=== PATIENT | female | born 1965 | race Two or more races ===

== ENCOUNTER 2024-07-02 11:45 | Day surgery (SDC) | payer OTHER, MEDICAID, SELFPAY ==
--- NOTE | 2024-07-01 11:58 | EKG_ITS ---
[facility] Test Date: 2024-07-01 Pat Name: SUZY FITZPATRICK Department: Room: - Gender: Female Rod Puller: RAYMOND : 1965 Requested By: Eduardo Medeiros Order Number: [id number] Reading MD: Eduardo Medeiros Measurements Intervals [place] Rate: 78 P: 46 MO: 134 QRS: 24 QRSD: 82 T: 30 QT: 373 QTc: 426 Interpretive Statements SINUS RHYTHM Compared to ECG 01/28/2020 12:03:18 T-wave abnormality no longer present /store/S0/[id number]
[2024-07-01 12:04] VITALS: BMI 36.9
[2024-07-01 13:38] LABS: Basophils # (Auto) 0.1 Thou/mm3 (0.0-0.2); Basophils % (Auto) 1 % (0-2.5); Eosinophils # (Auto) 0.4 Thou/mm3 (0.0-0.5); Eosinophils % (Auto) 4 % (0-10); Hematocrit 40.5 % (36.0-46.0); Hemoglobin 13.7 g/dL (12.0-16.0); Immature Granulocytes % (Auto) 0 % (0-0); Immature Granulocytes Auto 0.01 Thou/mm3 (0.00-0.00); Lymphocytes # (Auto) 2.7 Thou/mm3 (1.0-4.8); Lymphocytes % (Auto) 30 % (10-50); Mean Corpuscular HGB Conc 33.8 g/dl (31.0-37.0); Mean Corpuscular Hemoglobin 30.9 pg (25.0-35.0); Mean Corpuscular Volume 91 fL (80-100); Monocytes # (Auto) 0.8 Thou/mm3 (0.0-0.8); Monocytes % (Auto) 9 % (0-12); Neutrophils # (Auto) 5.3 Thou/mm3 (1.8-7.7); Neutrophils % (Auto) 57 % (37-80); Nucleated Red Blood Cell % 0 /100 WBC (0); Platelet Count 231 Thou/mm3 (140-440); RDW Standard Deviation 41.1 fL (36.4-46.3); Red Blood Count 4.43 Miln/mm3 (4.00-5.20); White Blood Count 9.2 Thou/mm3 (3.6-11.0)
[2024-07-01 13:43] LABS: Partial Thromboplastin Time 27.6 Seconds (22.0-36.0); Prothrombin Time 10.9 Seconds (9.0-12.2)
[2024-07-01 13:52] LABS: Alanine Aminotransferase 24 U/L (10-49); Albumin, Serum 4.4 gm/dL (3.5-5.0); Albumin/Globulin Ratio 1.3 (1.2-2.2); Alkaline Phosphatase 98 U/L (46-116); Anion Gap 6 (7-16); Aspartate Amino Transferase 20 U/L (0-34); BUN/Creatinine Ratio 18 Ratio (12-20); Bilirubin,Total 0.5 mg/dL (0.3-1.2); Blood Urea Nitrogen 14 mg/dL (9-23); Calcium 10.3 mg/dL (8.3-10.6); Calcium (Corrected) 10.3 mg/dL (8.5-10.1); Carbon Dioxide 25.9 mMol/L (20.0-31.0); Chloride 106 mMol/L (98-107); Creatinine (Component) 0.8 mg/dL (0.6-1.3); Estimated Creatinine Clearance 82.7 mL/min (>60); Globulin 3.5 gm/dL (2.3-3.5); Glucose 87 mg/dL (74-106); Osmolality,Calculated 275 (275-295); Potassium 4.8 mMol/L (3.4-5.1); Sodium 138 mMol/L (136-145); Total Protein 7.9 gm/dL (5.7-8.2); eGFR > 60 See Note
--- NOTE | 2024-07-01 15:58 | ESHP_ITS ---
RE: SUZY FITZPATRICK : 1965 DATE OF ADMISSION: 07/02/2024 HISTORY OF PRESENT ILLNESS: The patient came to my office for detailed preop history and physical examination, expressed to present complaint. As per the patient, she has got pain in the right knee joint. The patient stated that pain started about few months back, but the last two months are extremely bad. There is a history of swelling, clicking and locking of the right knee joint. The patient graded intensity of pain to be 8/10. Her quality of life and activities of daily living is affected. There is no history of giving way. The patient wants something to be done about it. The patient underwent right knee arthroscopy in 2016 by me. PAST MEDICAL HISTORY: The patient has a history of high blood pressure. PAST SURGICAL HISTORY: Right knee arthroscopy in 2016. DRUG HISTORY: The patient is on, 1. Ibuprofen 2. Lisinopril 3. Ipratropium 4. Fluticasone The patient stopped ibuprofen recently. ALLERGIES: ALLERGIES TO CODEINE. FAMILY HISTORY AND SOCIAL HISTORY: The patient denies smoking but admits social drinking socially. 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 PHYSICAL EXAMINATION: GENERAL: Normal built lady. VITAL SIGNS: Pulse 87/min, blood pressure 146/81. NECK: Soft, supple. No mass felt. Trachea is centrally placed. CARDIOVASCULAR SYSTEM: First and second heart sounds are normal. No murmur heard. RESPIRATORY SYSTEM: Bilateral vascular breath sounds. CHEST: Clear. ABDOMEN: Soft. No mass felt. Bowel sounds present. BREASTS: Breast exam is not indicated in this case. The patient is advised to see the family physician for regular examination. EXTREMITIES: Right knee examination revealed mild swelling. There is 2+ tenderness. There is a previous scar remarkable for surgery. Active range of motion 0 to 120 degrees of flexion. Tamanna's test is positive. test were negative. Neurovascularly is intact. The patient walks with a limp. DIAGNOSTIC DATA: MRI scan of the right knee was obtained on 06/02/2024. It revealed torn meniscus. Both medial and lateral meniscus are torn. There is also a sprain of the anterior cruciate ligament. Since the patient is symptomatic, therefore, right knee arthroscopy was discussed and advised. Risks with anesthesia was explained and that includes, but not limited to reaction to anesthetic agents, cardiac arrest, and rarely it might be fatal. Risk with operation includes infection and if that happens, the patient may need further surgical procedure. Other risks include delayed healing, wound dehiscence, etc. Indeed, if one finds grade 3 and/or grade 4 chondromalacia, there is a high chance that the patient may not improve much with the pain. In that case, the patient may be a candidate for knee replacement and the patient is fully aware of that. Surgery is booked for 07/02/2024. Appropriate lab work is done. DT: 12:26:36 TT: 15:43:00 Ref: [id number] - TID: [id number]
[2024-07-02] VITALS (9 sets, daily range): BP systolic 108–130; BP diastolic 68–82; PULSE 82–99; RESP 12–20; TEMP 36.3–36.5; O2SAT 95–98; BMI 36.7
--- NOTE | 2024-07-02 15:39 | PD.SUROPNT ---
Date of Procedure 07/02/24 Pre Op Diagnosis Torn medial meniscus right knee joint 2. Torn lateral meniscus 3 degenerative joint disease changes. 4. Synovitis Post Op Diagnosis Same Procedure 1. Partial medial meniscectomy 2 partial lateral meniscectomy 3. Chondroplasty 4. Partial synovectomy including excision plica Findings Patient has significant synovitic tissue inflammation in the suprapatellar pouch area. There is a significant degenerative joint disease changes at patellofemoral compartment. Soft tissue impingement was present. Rest of the findings are in my op report Procedure Description The patient was given general endotracheal anesthesia. Once satisfactory anesthesia was achieved, tourniquet was placed on right upper thigh. Following that the part was thoroughly prepped and draped. After using Esmarch the tourniquet pressure was raised to 350 mmHg. A skin incision was made proximal to lateral tibial plateau and arthroscope was introduced in the usual fashion. Another a skin incision was made in suprapatellar pouch area and outlet was established. The findings were noted as below. In suprapatellar pouch area significant synovial tissue inflammation was present. Medial plica was present as well. The undersurface of patella showed grade 4 chondromalacia. The anterior femoral condyle showed grade 3/4 yes chondromalacia. Soft tissue impingement was present. Medial shelf was present. The patellar tracking was checked and found to be good. The medial compartment showed grade 3/4 chondromalacia for medial tibial plateau and medial femoral condyle. The medial meniscus showed degeneration and tear of the posterior horn. It was rather complex tear. Another skin incision was made proximal to medial tibial plateau and a probe was introduced and findings were confirmed. The anterior cruciate ligament was intact. The anterior drawer test was performed and found to be good. With the help of probe the integrity of the ACL was tested and found to be good The lateral compartment showed grade II/III chondromalacia of lateral femoral condyle and tibial plateau. Lateral meniscus showed degeneration and tear of the body and anterior horn. A basket was introduced and torn part of the posterior horn of medial meniscus was excised. A shaver was introduced and shaving of the posterior horn of medial meniscus was performed. Soft tissue impingement was shaved off. Chondroplasty of the medial femoral condyle and medial tibial plateau was performed. A basket was introduced in the lateral compartment and trimming of the torn part of the lateral meniscus was performed. The shaving of the body and anterior horn of lateral meniscus was done. The chondroplasty of the patella and and anterior femoral condyle was performed. The soft tissue impingement was shaved off. A partial synovectomy including excision of plica was performed. Copious amount of irrigation was used to irrigate the knee joint. All the debris were removed. 3-0 Prolene was used to close the wound. About 20 mL of quarter percent Marcaine along with 10 mg of Duramorph was injected. Patient tolerated procedure well. Estimated blood loss was about 5 mL. Prognosis in this case is guarded. Because of grade 3 and grade IV chondromalacia and almost all the compartment there is a chance that patient may continue having pain. In that case patient may be a candidate for knee replacement and patient is fully aware of that possibility.. Patient was taken to the recovery room in good condition. Anesthesia GETA Pathology / specimen None Estimated Blood Loss 1 Surgeon Eduardo Davis MD Surgical Staff Operation Date: 07/02/24 14:15 Case Staff Anesthesiologist: Myron Solorio
[2024-07-02] MEDS: fentaNYL CIT INJ 50 mCg/ML AMP 2ML 25 MCG IV ×2 (16:01→16:10)
[2024-07-02] MEDS: ACETAMINOPHEN IVPB 1,000 MG/100 ML VIAL 250 MG IV (16:12)
[2024-07-02] MEDS: HYDROcodone/APAP 5/325 TABLET 1 TAB PO (16:43)
== END 2024-07-02 17:12 | disposition home or self-care (01) ==
PROVIDERS: Anesthesiology; PCP Nurse Practitioner Family; Referring Provider Orthopaedic Surgery; Visit Provider Orthopaedic Surgery
PROC: (CPT 29870; principal; 2024-07-02 14:15)
DX: S83.241A Other tear of medial meniscus, current injury, right knee, initial encounter (principal); S83.281A Other tear of lateral meniscus, current injury, right knee, initial encounter; M65.90 Unspecified synovitis and tenosynovitis, unspecified site; Z01.810 Encounter for preprocedural cardiovascular examination
CPT/HCPCS: 29875; 29880; 36415; 80048; 80053; 85025; 85610; 85730; 93005; A4217; A4649; J0131; J1100; J1885; J2250; J2274; J2371; J2405; J2704; J3010; J3490; A9270; J2270

== ENCOUNTER 2024-12-18 20:43 | Emergency (ER) | payer OTHER, SELFPAY ==
[2024-12-18 20:45] VITALS: BMI 33.8
[2024-12-18 21:45] VITALS: BP 127/83; PULSE 70; RESP 18; TEMP 37; O2SAT 98
--- NOTE | 2024-12-18 22:15 | EDNOTE_ITS ---
ED Fall Injury RME/HPI General Chief Complaint: Fall Stated Complaint: SLIPPED AND FELL AT WORK Time Seen by Provider: 12/18/24 22:08 Arrival date/time: 12/18/24 20:43 Limitations: no limitations RME / HPI RME / HPI Narrative: 59-year-old female presents to the ED following a slip and fall at work. 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 She denies striking her head or having any loss consciousness. Related Data Home Medications ?Medication ?Instructions ?Recorded ?Confirmed lisinopril 10 mg tablet 10 mg PO DAILY 07/01/2412/18 tirzepatide (weight loss) 2.5 2.5 mg subcut QWEEK 12/1807/01/24 mg/0.5 mL subcutaneous pen injector (Zepbound) Previous Rx's ?Medication ?Instructions ?Recorded Hydrocodone/Acetaminophen * (NORCO 1 tab PO Q6H PRN PA IN #12 tabs 01/23/17 5/325 *) meloxicam 15 mg tablet 15 mg PO QDAY #10 tabs 12/19 Allergies Allergy/AdvReac Type Severity Reaction Status Date / Time latex Allergy Intermediate RASH Verified 07/01/24 12:02 codeine Allergy Verified 07/01/24 12:02 Review of Systems Review of Systems Systems Reviewed: All systems reviewed, normal except as documented Past Medical History Past Medical History NEUROLOGIC: Negative Neurological Disorders or Seizures CARDIAC: Positive Cardiac Disorders and Hypertension; Negative Congestive Heart Failure RESPIRATORY: Negative Chronic Obstructive Pulmonary Disease (COPD) GASTROINTESTINAL: Positive Gastrointestinal Disorders and Obesity; Negative Hepatitis GENITOURINARY: Positive Genitourinary Disorders and Kidney Stones; Negative Renal Disease REPRODUCTIVE: Positive Previous Pregnancies (3) MUSCULOSKELETAL: Positive Musculoskeletal Disorders and Fractures (right ribs, right toes) ENDOCRINE: Negative Endocrine Disorders, Diabetes Mellitus Type 1 or Diabetes Mellitus Type 2 HEMATOLOGIC: Negative Blood Disorders OTHER HISTORY: Positive Hospitalization, Chicken Pox, Measles and Mumps; Negative Autoimmune Disease, Shingles, Blood Transfusions, Blood Transfusion Reaction, Anesthesia Reactions or Cancer Family History FAMILY HISTORY: Positive Family Cancer and Family Surgery; Negative Family Psychiatric Problems, Family Respiratory Disorders, Family Cardiac Disorders, Family Gastrointestinal Problems or Family Anesthesia Reaction Surgical History SURGICAL: Positive Abdominal Surgery and Section Social History SMOKING STATUS: Never smoker ED Exam Narrative Physical exam: Alert and oriented 59-year-old female, sitting in wheelchair, no acute distress. Lungs are clear, regular rate and rhythm without murmurs. No C-spine point tenderness however there is left trapezius muscle spasm noted. Tenderness to the right ankle in the area of the lateral and medial malleolus. Tenderness to the dorsal aspect of the right foot. Tenderness to the left anterior knee without erythema, ecchymosis, or swelling. Bilateral knee braces intact. CMS intact to all 4 extremities. General Limitations: Present no limitations General appearance: Present alert and in no apparent distress Course Course Course Narrative: 59-year-old female presents to the ED following a slip and fall at work. 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 She denies striking her head or having any loss consciousness. Alert and oriented 59-year-old female, sitting in wheelchair, no acute distress. Lungs are clear, regular rate and rhythm without murmurs. No C-spine point tenderness however there is left trapezius muscle spasm noted. Tenderness to the right ankle in the area of the lateral and medial malleolus. Tenderness to the dorsal aspect of the right foot. Tenderness to the left anterior knee without erythema, ecchymosis, or swelling. Bilateral knee braces intact. CMS intact to all 4 extremities. Orders Category Date Time Status XR ankle comp RT min 3V Stat Exams 12/18/24 22:17 Completed XR cervical spine 2-3V Stat Exams 12/18/24 22:17 Completed XR foot comp RT min 3V Stat Exams 12/18/24 22:17 Completed XR knee LT 3V Stat Exams 12/18/24 22:17 Completed Ibuprofen Tab [Motrin Tab] Med 12/18/24 22:18 Discontinued 600 mg PO X1 ONE Vital Signs Vital signs: Vital Signs Temperature 98.6 F 12/18/24 21:45 Pulse Rate 70 12/18/24 21:45 Respiratory Rate 18 12/18/24 21:45 Blood Pressure 127/83 12/18/24 21:45 Pulse Oximetry (%) 98 12/18/24 21:45 Oxygen Delivery Method Room Air 12/18/24 21:45 Fall Medications / Prescriptions Medication administrations:: Medication Administration History Discontinued Medications Ibuprofen (Ibuprofen Tab 600 Mg Tablet) 600 mg PO X1 ONE Stop: 12/18/24 22:19 Last Admin: 12/18/24 22:26 Dose: 600 mg Documented By: ANTHONY Discharge Plan Plan Patient Disposition: HOME (Self Care) Discharge Disposition comment: Stable Prescriptions/Referrals Prescriptions/Med Rec: New meloxicam 15 mg tablet 15 mg PO QDAY Qty: 10 0RF No Action Hydrocodone/Acetaminophen * (NORCO 5/325 *) 1 TAB tablet 1 tab PO Q6H PRN (Reason: PAIN) Qty: 12 0RF lisinopril 10 mg tablet 10 mg PO DAILY Patient Comments: TAKE 1 TABLET BY MOUTH ONCE DAILY Zepbound 2.5 mg/0.5 mL pen injector 2.5 mg SUBCUT QWEEK Patient Comments: INJECT 2.5MG SUBCUTANEOUSLY ONCE A WEEK Referrals: Divya Culp, [employer] [Primary Care Provider] - In 1 week Problem List Clinical Impression: Sprain of foot, Right ankle sprain, Contusion of knee, left Patient/Caregiver Discharge Instructions Education Materials: ED Contusion, Lower Extremity, ED Foot Sprain, ED Ankle Sprain (Adult) Additional Instructions: Ice and elevate the painful parts. Take the anti-inflammatory as needed for pain, once daily. Follow-up with your primary care physician in 24 to 48 hours. Return to the ED for any new or worsening symptoms. Print Language: Bermudian Stand Alone Forms: [employer] Award Info., Patient Portal Info Letter PA/ALIREZA Supervising Physician PA/ALIREZA Supervising Physician: Dr. Goyal
--- NOTE | 2024-12-18 22:17 | XR_ITS ---
Examination: Knee, left , 3 views Technique: Knee AP, lateral, oblique 3 views Date and time of exam: December 18, 2024 at 1112 hours INDICATIONS: Patient fell today with injury to the knee, knee pain FINDINGS: No acute fracture No dislocation No foreign body IMPRESSION: No acute fracture
--- NOTE | 2024-12-18 22:17 | XR_ITS ---
Examination: Foot, right, 3 views Technique: AP, oblique, lateral views foot, 3 views Date and time of exam: December 18, 2024 1105 hours INDICATIONS: Patient fell today with injury to foot, foot pain FINDINGS: No acute fracture No dislocation Ossification in the plantar fascia with plantar bony calcaneal spur IMPRESSION: No acute fracture
--- NOTE | 2024-12-18 22:17 | XR_ITS ---
EXAMINATION: Ankle, right 3 views . Technique: Ankle AP, oblique, lateral 3 views Date and time of exam: December 18, 2024 1109 hours INDICATIONS: Patient fell today with ankle, ankle pain. FINDINGS: No acute fracture. No dislocation No foreign body IMPRESSION: No acute fracture
--- NOTE | 2024-12-18 22:17 | XR_ITS ---
Examination: Cervical spine 3 views Technique one AP lateral coned AP and odontoid cervical spine 3 views Date and time: December 18, 2024 1039 hours INDICATIONS: Patient slipped and fell today with into the neck, neck pain FINDINGS: No acute cervical fracture Intact odontoid. Advanced degenerative disc disease C5-C6 IMPRESSION: No cervical fracture
[2024-12-18] MEDS: IBUPROFEN TAB 600 MG TABLET PO (22:26)
[2024-12-19 02:09] VITALS: BP 109/72; PULSE 65; RESP 16; TEMP 36.3; O2SAT 97
== END 2024-12-19 02:11 | disposition home or self-care (01) ==
PROVIDERS: Emergency Provider Emergency Medicine; PCP Nurse Practitioner Family
DX: S93.401A Sprain of unspecified ligament of right ankle, initial encounter (principal); S80.02XA Contusion of left knee, initial encounter; S93.601A Unspecified sprain of right foot, initial encounter; W01.0XXA Fall on same level from slipping, tripping and stumbling without subsequent striking against object, initial encounter; Y99.0 Civilian activity done for income or pay; S19.9XXA Unspecified injury of neck, initial encounter
CPT/HCPCS: 72040; 73562; 73610; 73630; 99283; A9270